=== PATIENT | male | born 1950 | race Caucasian/White ===

== ENCOUNTER 2017-08-12 05:36 | Emergency (ER) | payer OTHER ==
[2017-08-12 05:40] VITALS: TEMP 96.9
[2017-08-12] MEDS ORDERED: COUMADIN 6MG6 MG/TAB PO (05:52)
[2017-08-12] MEDS ORDERED: COUMADIN 5MG5 MG/TAB PO (05:52)
[2017-08-12 06:14] LABS: BASO % 0.6 % (0.0-2.0); EOS # 0.2 (0.0-0.7); EOS % 2.3 % (0-4.0); GRAN % 71.1 % (42.2-75.2); HEMATOCRIT 38.7 % (42.0-52.0); HEMOGLOBIN 13.5 g/dl (13.5-18.0); LYMPH # 1.3 (1.2-3.4); LYMPH % 18.9 % (20.0-51.0); MEAN CELL VOLUME 92 fl (80.0-100.0); MEAN CORPUSCULAR HEMOGLOBIN 32 pg (27.0-31.0); MEAN CORPUSCULAR HGB CONC 35 g/dl (33.0-37.0); MEAN PLATELET VOLUME 10.2 fl (7.4-10.4); MONO # 0.5 (0.1-0.6); PLATELET COUNT 232 K/mm3 (130-400); RED BLOOD COUNT 4.19 M/mm3 (4.20-5.60); REDCELL DISTRIBUTION WIDTH-CV 12.4 % (11.5-14.5)
[2017-08-12 06:19] LABS: INR 2.6 (0.8-3.0); PROTHROMBIN TIME 29.5 SECONDS (9.7-12.8)
[2017-08-12] MEDS ORDERED: FLEXERIL 1010 MG/TAB PO (06:56)
[2017-08-12] MEDS ORDERED: NORCO 325 MG-51 TAB PO (06:56)
[2017-08-12 07:07] VITALS: BP 152/80; PULSE 70
== END 2017-08-12 07:08 | disposition home or self-care (01) ==
LOC: COL.ER 05:36
PROVIDERS: Emergency Medicine
DX: S00.83XA Contusion of other part of head, initial encounter (principal); S16.1XXA Strain of muscle, fascia and tendon at neck level, initial encounter; R40.2412 Glasgow coma scale score 13-15, at arrival to emergency department; Z86.73 Personal history of transient ischemic attack (TIA), and cerebral infarction without residual deficits; Z87.74 Personal history of (corrected) congenital malformations of heart and circulatory system; Z79.01 Long term (current) use of anticoagulants; W22.09XA Striking against other stationary object, initial encounter